=== PATIENT | female | born 1985 | race American Indian/Alaskan Native ===

== ENCOUNTER 2020-05-26 15:23 | Emergency (ER) | payer MEDICAID, OTHER ==
[2020-05-26 18:34] LABS: Basophils % (Auto) 0.3 % (0.0-1.8); Eosinophils % (Auto) 0.3 % (0.0-4.3); Hemoglobin 12.5 gm/dl (10.1-14.3); Lymphocytes # (Auto) 0.9 K/mm3 (1.2-5.4); Mean Corpuscular HGB Conc 35 % (30-34); Mean Corpuscular Volume 84 fl (79-97); Monocytes # (Auto) 0.4 K/mm3 (0.0-0.8); Monocytes % (Auto) 8.7 % (0.0-7.3); Platelet Count 321 K/mm3 (140-440); Red Blood Count 4.28 M/mm3 (3.65-5.03); Red Cell Distribution Width 14.3 % (13.2-15.2)
--- NOTE | 2020-05-26 18:54 | XRay Report ---
CHEST 2 VIEWS INDICATION / CLINICAL INFORMATION: shortness of breath, +covid. COMPARISON: None available. FINDINGS: SUPPORT DEVICES: None. HEART / MEDIASTINUM: No significant abnormality. LUNGS / PLEURA: Mild patchy bilateral airspace disease No pneumothorax. ADDITIONAL FINDINGS: No significant additional findings. IMPRESSION: Mild patchy bilateral airspace disease Signer Name: Adriano Huff MD FACR Signed: 05/26/2020 6:50 PM Workstation Name: [id number]
[2020-05-26 18:55] LABS: Alanine Aminotransferase 13 units/L (7-56); Blood Urea Nitrogen 7 mg/dL (7-17); Calcium 9.1 mg/dL (8.4-10.2); Hemolysis Index 8
[2020-05-26 19:02] LABS: BUN/Creatinine Ratio 12
[2020-05-26] MEDS ORDERED: AZITHROMYCIN 250 MG TAB PO ONE (20:36)
--- NOTE | 2020-05-26 20:41 | Emergency Department Report ---
HPI - General Chief Complaint: Dyspnea/Respdistress Time Seen by Provider: 05/26/20 20:25 - HPI HPI: This is a 34-year-old female who presents to the emergency department with a complaint of shortness of breath that started today. Patient was having a few days of head congestion, loss of smell and taste, and went to be seen in urgent care yesterday where she tested positive for Covid. She is currently 14 weeks . With this she is G4, P1 with 2 previous miscarriages. She follows with [facility]. She also has a past medical history of insulin-dependent diabetes and sees a perinatologist. She denies any fever, chest pain, lower e xtremity swelling, nausea, vomiting. She has not taken anything for symptoms prior to presentation today. No recent travel. ED Past Medical Hx - Past Medical History Hx Diabetes: Yes - Surgical History Additional Surgical History: D&C - Social History Smoking Status: Never Smoker Substance Use Type: None - Medications Home Medications: Home Medications Medication Instructions Recorded Confirmed Last Taken Type Amoxicillin/K Clav Tab [Augmentin 1 tab PO BID #20 tablet 09/18/14 Unknown Rx 875MG] Fluticasone Propionate [Flonase] 2 sprays NS QDAY #1 bottle 09/18/14 Unknown Rx Ibuprofen [Motrin] 600 mg PO Q8H PRN #40 tablet 09/18/14 Unknown Rx Loratadine (Nf) [Claritin] 10 mg PO DAILY #30 tablet 09/18/14 Unknown Rx predniSONE [Deltasone] 40 mg PO QDAY #10 tab 09/18/14 Unknown Rx cephALEXin [Keflex] 500 mg PO QID #28 capsule 02/05/15 Unknown Rx Albuterol Mdi (or & Nicu Only) 2 puff IH QID PRN #8.5 gram 05/27/20 Unknown Rx [ProAir HFA Inhaler] Azithromycin [Zithromax TAB] 250 mg PO QDAY #4 tablet 05/27/20 Unknown Rx ED Review of Systems ROS: Stated complaint: SHORTNESS OF BREATH/COUGH Other details as noted in HPI Comment: All other systems reviewed and negative Constitutional: chills, other (fatigue). denies: fever Eyes: denies: eye pain, vision change ENT: denies: ear pain Respiratory: cough, shortness of breath. denies: no symptoms reported Cardiovascular: denies: chest pain, edema Gastrointestinal: denies: abdominal pain, vomiting Genitourinary: denies: dysuria, discharge Musculoskeletal: back pain, myalgia. denies: arthralgia Skin: denies: rash, lesions Neurological: denies: headache, numbness Physical Exam - Physical Exam Vital Signs: Vital Signs 05/26/20 15:35 Temperature 98.6 F Pulse Rate 124 H Respiratory 24 Rate Blood Pressure 142/83 O2 Sat by Pulse 98 Oximetry Physical Exam: GENERAL: The patient is well-developed well-nourished. HENT: Normocephalic. Atraumatic. Patient has moist mucous membranes. EYES: Extraocular motions are intact. NECK: Supple. Trachea is midline. CHEST/LUNGS: Clear to auscultation. Mild tachypnea but no accessory muscle use. No cough heard during examination. There is no respiratory distress noted. HEART/CARDIOVASCULAR: Regular. There is mild tachycardia. There is no murmur. ABDOMEN: Abdomen is soft, nontender. Patient has normal bowel sounds. Obese habitus. SKIN: Skin is warm and dry. NEURO: The patient is awake, alert, and oriented. The patient is cooperative. The patient has no focal neurologic deficits. Normal speech. MUSCULOSKELETAL: There is no tenderness or deformity. There is no limitation range of motion. ED Course Vital Signs 05/26/20 15:35 Temperature 98.6 F Pulse Rate 124 H Respiratory 24 Rate Blood Pressure 142/83 O2 Sat by Pulse 98 Oximetry ED Medical Decision Making - Lab Data Result diagrams: 05/26/20 18:20 05/26/20 18:20 - Radiology Data Radiology results: report reviewed CHEST 2 VIEWS INDICATION / CLINICAL INFORMATION: shortness of breath, +covid. COMPARISON: None available. FINDINGS: SUPPORT DEVICES: None. HEART / MEDIASTINUM: No significant abnormality. LUNGS / PLEURA: Mild patchy bilateral airspace disease No pneumothorax. ADDITIONAL FINDINGS: No significant additional findings. IMPRESSION: Mild patchy bilateral airspace disease CTA of the chest with 3D Reconstruction Indication: 91 ,SOB, elevated dimer Technique: TECHNIQUE: Axial CT images were obtained through the chest after injection of 80 cc of Omnipaque 350 IV contrast. 3 plane MIP reconstructions were produced. All CT scans at this location are performed using CT dose reduction for ALARA by means of automated exposure control. COMPARISON: None Automatic exposure control was utilized in an attempt to reduce radiation dose. Findings: Pulmonary arteries: The main pulmonary artery and right and left pulmonary artery branches fill satisfactorily with contrast. No pulmonary embolus is seen. Lungs: There are patchy peripheral groundglass opacities throughout the lungs. Mediastinum: Heart size is normal. No adenopathy is seen. Aorta: Normal in diameter. No dissection seen within limits of this exam. Impression: No pulmonary embolus is seen There are patchy peripheral groundglass opacities in the lungs characteristic of atypical pneumonia including viral pneumonia. - Medical Decision Making This patient presents to the emergency department with a 1 day history of shortness of breath that developed after the patient was found to be positive for COVID-19 yesterday at an urgent care. The patient is currently 14 weeks . She has no complaints of any abdominal pain, pelvic pain, vaginal bleeding, nausea or vomiting. On examination the patient has some mild tachypnea but does not appear in any respiratory distress. There is also some mild tachycardia. EKG did not have any morphology consistent with ST elevation [place] or dysrhythmia. Chest x-ray showed bilateral patchy infiltrates that appear consistent with her COVID-19 diagnosis. The patient had some blood work through triage that was mostly unremarkable including CBC and CMP. The patient's symptoms are most likely consistent with COVID-19. The patient and I had a conversation regarding evaluating her for an ruling out a pulmonary embolism. While the patient did have the COVID-19 diagnosis, she did present with acute shortness of breath and tachycardia. Both and COVID-19 have been shown to increase risks for thromboembolic disease. The patient und erstood the protocol for the work-up and understood that it may require CT angiography imaging of the chest. All of the risks versus rewards were discussed with the patient, all questions answered, and the patient agreed that we should proceed with this evaluation. Her D-dimer level came back elevated and therefore a CT angiography of the chest was performed. There were no signs of any pulmonary embolism and it once again showed bilateral pneumonia. Patient was given a dose of azithromycin. The patient had a 2-minute walking/exertional test around the emergency department. Her pulse ox stayed at 95% or above. She did have some transient increase in her tachycardia but that came back down as soon as she sat down on the gurney and rested. The patient will be discharged home to quarantine/self isolate. She has been instructed to follow-up with, or at least make contact with, her primary care physician and [facility] and perinatologist. She has been given a prescription for azithromycin and albuterol inhaler. The patient has been instructed to return to the emergency department im mediately with any worsening of her shortness of breath, development of chest pain, worsening of her symptoms, or with any acute distress. The patient was placed in patient isolation and droplet precautions immediately upon arrival to the main emergency department. I wore full PPE gear including a surgical hat, goggles, N95 mask, surgical mask, gown, and double gloves for every encounter. Critical Care Time: No Critical care attestation.: If time is entered above; I have spent that time in minutes in the direct care of this critically ill patient, excluding procedure time. ED Disposition Clinical Impression: COVID-19 Qualifiers: Weeks of gestation: 14 weeks Qualified Code(s): Z3A.14 - 14 weeks gestation of Pneumonia Qualifiers: Pneumonia type: due to unspecified organism Laterality: bilateral Lung location: unspecified part of lung Qualified Code(s): J18.9 - Pneumonia, unspecified organism Disposition: TO HOME OR SELFCARE Is pt being admited?: No Condition: Stable Instructions: COVID-19, (ED) Additional Instructions: Please follow-up with a primary care physician in the next few days. Please follow-up with your [facility]. With your positive COVID-19 test, please isolate/quarantine yourself. Stay away from anybody who is immunocompromised, elderly, or chronically ill/debilitated. Return to the emergency department immediately with any worsening of your symptoms, especially increased shortness of breath, development of chest pain, high intractable fever, or with any acute distress. Prescriptions: Albuterol Mdi (or & Nicu Only) [ProAir HFA Inhaler] 2 puff IH QID PRN #8.5 gram PRN Reason: Shortness Of Breath Azithromycin [Zithromax TAB] 250 mg PO QDAY #4 tablet Referrals: [facility] [Provider Group] - 2-3 Days PRIMARY CARE, [Primary Care Provider] - 2-3 Days Time of Disposition: 00:29
--- NOTE | 2020-05-26 23:56 | Cat Scan Report ---
CTA of the chest with 3D Reconstruction Indication: 91 ,SOB, elevated dimer Technique: TECHNIQUE: Axial CT images were obtained through the chest after injection of 80 cc of Omnipaque 350 IV contrast. 3 plane MIP reconstructions were produced. All CT scans at this location are performed u sing CT dose reduction for ALARA by means of automated exposure control. COMPARISON: None Automatic exposure control was utilized in an attempt to reduce radiation dose. Findings: Pulmonary arteries: The main pulmonary artery and right and left pulmonary artery branches fill satis factorily with contrast. No pulmonary embolus is seen. Lungs: There are patchy peripheral groundglass opacities throughout the lungs. Mediastinum: Heart size is normal. No adenopathy is seen. Aorta: Normal in diameter. No dissection seen within limits of this exam. Impression: No pulmonary embolus is seen There are patchy peripheral groundglass opacities in the lungs characteristic of atypical pneumonia i ncluding viral pneumonia. Signer Name: Cristian Beaulieu MD Signed: 05/26/2020 11:51 PM Workstation Name: [id number]
[2020-05-27 00:56] VITALS: BP 116/76
== END 2020-05-27 00:56 | disposition home or self-care (01) ==
LOC: ED 15:23
DX: O98.512 Other viral diseases complicating pregnancy, second trimester (principal); O99.512 Diseases of the respiratory system complicating pregnancy, second trimester; J12.89 Other viral pneumonia; U07.1 COVID-19; O24.912 Unspecified diabetes mellitus in pregnancy, second trimester; Z88.1 Allergy status to other antibiotic agents; Z91.040 Latex allergy status; Z91.09 Other allergy status, other than to drugs and biological substances; Z79.899 Other long term (current) drug therapy; Z3A.14 14 weeks gestation of pregnancy
CPT/HCPCS: 36415; 71046; 71275; 80053; 85025; 85379; 99285; Q9967

== ENCOUNTER 2020-11-05 10:27 | Outpatient (CLI) | payer OTHER ==
[2020-11-05 11:24] VITALS: BP 129/58
[2020-11-05] MEDS ORDERED: LACTATED RINGERS 1,000 ML IV SCH (11:30)
--- NOTE | 2020-11-05 12:27 | Ultrasound Report ---
LIMITED OBSTETRICAL ULTRASOUND WITH BIOPHYSICAL PROFILE HISTORY: Tachycardia. FINDINGS: A single viable intrauterine in the cephalic position has heart tones of 13 2 bpm. Amniotic fluid index is normal at 13 cm. Biophysical profile is normal at 8/8. IMPRESSION: 1. Normal biophysical profile and amniotic fluid index. 2. heart tones 132 bpm at the time of exam. Signer Name: Bashir Elmore MD Signed: 11/05/2020 12:23 PM Workstation Name: [email or web address] [id number]
[2020-11-05 13:24] LABS: Bacteria,Urine 1+ /HPF (Negative); Bilirubin,Urine NEG (Negative); Blood,Urine NEG (Negative); Color,Urine Yellow (Yellow); Mucus,Urine 2+ /HPF; Protein,Urine <15 mg/dL mg/dL (Negative)
== END 2020-11-05 13:06 | disposition home or self-care (01) ==
LOC: TRG 10:27 → APU 10:28 → TRG 13:06
PROVIDERS: ATTEND Obstetrics & Gynecology
DX: Z34.93 Encounter for supervision of normal pregnancy, unspecified, third trimester (principal); Z3A.37 37 weeks gestation of pregnancy
CPT/HCPCS: 36415; 59025; 76815; 76819; 81001; 83036

== ENCOUNTER 2020-11-17 20:59 | Inpatient (IN) | payer OTHER ==
[2020-11-17] MEDS ORDERED: ONDANSETRON 4 MG/2 ML INJ IV PRN (23:10)
[2020-11-17] MEDS ORDERED: ePHEDrine SULFATE 50 MG/1 ML INJ IV PRN (23:10)
[2020-11-17] MEDS ORDERED: ACETAMINOPHEN 325 MG TAB PO PRN (23:10)
[2020-11-17] MEDS ORDERED: DINOPROSTONE 10 MG VAG SUPP VG ONE (23:10)
[2020-11-17] MEDS ORDERED: MINERAL OIL 30 ML ORAL LIQD PO PRN (23:10)
[2020-11-17] MEDS ORDERED: TERBUTALINE 1 MG/1 ML INJ SUB-Q PRN (23:10)
[2020-11-17] MEDS ORDERED: LACTATED RINGERS 1,000 ML IV SCH (23:15)
--- NOTE | 2020-11-17 23:31 | Ultrasound Report ---
US OB limited INDICATION / CLINICAL INFORMATION: PRESENTATION. COMPARISON: 11/05/2020 FINDINGS: lie is cephalic. heart rate is 149. IMPRESSION: 1. lie is cephalic. Signer Name: Aly Colmenares MD Signed: 11/17/2020 11:26 PM Workstation Name: [id number]
[2020-11-18 00:07] LABS: Hematocrit 34.8 % (30.3-42.9); Hemoglobin 11.4 gm/dl (10.1-14.3); Mean Corpuscular HGB Conc 33 % (30-34); Mean Corpuscular Volume 85 fl (79-97); Platelet Count 359 K/mm3 (140-440); Red Cell Distribution Width 15.5 % (13.2-15.2)
--- NOTE | 2020-11-18 05:35 | History and Physical Report ---
History of Present Illness Date of examination: 11/18/20 (IOL DMT2 insulin) Date of admission: 11/17/20 20:59 History of present illness: EDC Confirmation: 11/20/2020 Past History : 4 Term Births: 1 Premature Births: 0 Living Children: 1 Para: 1 Mult. Births: 0 Prev : 0 Aborta: 0 Elect. Ab: 0 Spont. 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 % Sun Exposure: rarely Family History Risk Factors: Family History of [place] in females < 65 years old: no Dietary Counseling: pn yes Past Medical History: Reviewed history and no changes required: Diabetes: Type 2 Past Surgical History: Reviewed history and no changes required: negative Past Medical History Anesthesia Complications: negative Anemia: negative Autoimmune Disorder: negative Bleeding Disorder: negative Blood Transfusions: negative Breast Disease: negative Diabetes: positive, Type 2 Heart Disease: negative Hypertension: negative Hepatitis/Liver Disease: negative Kidney Disease/UTI: negative Neurologic/Epilepsy/Migraines: negative Phlebitis/Varicosities: negative Psychiatric: negative Pulmonary Disease/Asthma: negative Thyroid Disease: negative Hospitalizations: negative Surgery (Non-urogynecology physician): negative Abnormal PAP: negative TRICE Exposure: negative Infertility: negative Uterine Anomaly: negative Uterine Surgery (not C/S): negative Other Gynecologic Problems: negative Family Hx: Sister: Type 1 Infection History Hx of STD: none HIV Risk Eval: low risk Hepatitis B Risk Eval: low risk Personal hx. of genital herpes: no Partner hx. of genital herpes: no Rash, Viral, or Febrile illness since last LMP? no Varicella/Chicken Pox Status: Previous Disease TB Risk: no Genetic History Congenital Heart Defect: Mom: no Dad: no [place] Disease: Mom: no Dad: no Thalassemia Mom: no Dad: no Neural Tube Defect Mom: no Dad: no Down's Syndrome Mom: no Dad: no Cr-Sachs Mom: no Dad: no Sickle Cell Disease/Trait Mom: no Dad: no Hemophilia Mom: no Dad: no Muscular Dystrophy Mom: no Dad: no Cystic Fibrosis Mom: no Dad: no Andreea Chorea Mom: no Dad: no Mental Retardation Mom: no Dad: no Fragile X Mom: no Dad: no Other Genetic/Chromosomal Disorder Mom: no Dad: no Child w/other defect Mom: no Dad: no Enviromental Exposures Xray Exposure: no Medication, drug, or alcohol use since LMP: no Chemical/Other Exposure: no Exposure to Cat Liter: no Hx of Parvovirus (Fifth Disease): no Occupational Exposure to Children: none Active Medications: VITAMINS GUMMIES () Current Allergies (reviewed today): * EYE DROPS (Critical) * LATEX (Critical) Past History - Obstetrical History Expected Date of Delivery: 11/20/20 Actual Gestation: 39 Week(s) 5 Day(s) : 4 Para: 1 Hx # Term Pregnancies: 1 Number of Pregnancies: 0 Spontaneous Abortions: 2 Induced : 0 Number of Living Children: 1 Medications and Allergies Allergies Allergy/AdvReac Type Severity Reaction Status Date / Time gentamicin [Gentamicin] Allergy Severe Unknown Verified 11/05/20 11:16 Latex, Natural Rubber Allergy Unknown Verified 05/26/20 15:32 Home Medications Medication Instructions Recorded Confirmed Last Taken Type Albuterol Mdi (or & Nicu Only) 2 puff IH QID PRN #8.5 gram 05/27/20 11/18/20 Unknown Rx [ProAir HFA Inhaler] Insulin NPH Human Isophane 36 unit SQ BID 11/18/20 11/18/20 11/17/20 08:00 History [Humulin N] Insulin Regular, Human [Humulin R] 25 unit SQ BID 11/18/20 11/18/20 11/17/20 17:00 History Vit-Fe Fumar-FA [ 1 tab PO QDAY 11/18/20 11/18/20 11/17/20 08:00 History Vitamin] Active Meds: Active Medications Acetaminophen (Acetaminophen 325 Mg Tab) 650 mg PO Q4H PRN PRN Reason: Pain, Mild (1-3) Ephedrine Sulfate (Ephedrine Sulfate 50 Mg/1 Ml Inj) 10 mg IV Q2M PRN PRN Reason: Hypotension Lactated Ringer's (Lactated Ringers) 1,000 mls @ 125 mls/hr IV DIRECT SARI Mineral Oil (Mineral Oil 30 Ml Oral Liqd) 30 ml PO QHS PRN PRN Reason: Constipation Ondansetron HCl (Ondansetron 4 Mg/2 Ml Inj) 4 mg IV Q8H PRN PRN Reason: Nausea And Vomiting Terbutaline Sulfate (Terbutaline 1 Mg/1 Ml Inj) 0.25 mg SUB-Q ONCE PRN PRN Reason: Hyperstimulation/Hypertonicity Review of Systems All systems: negative - Vital Signs Vital signs: Vital Signs Pulse Pulse Ox 107 H 98 11/17/20 22:20 11/17/20 22:20 Temp Pulse Resp BP Pulse Ox 98.1 F 87 19 120/57 98 11/18/20 03:10 11/18/20 05:29 11/18/20 03:10 11/18/20 04:58 11/18/20 05:29 - Physical Exam Breasts: Positive: deferred Cardiovascular: Regular rate, Normal S1, Normal S2 Lungs: Positive: Normal air movement Abdomen: Positive: normal appearance, soft, normal bowel sounds. Negative: distention, tenderness Genitourinary (Female): Positive: normal external genitalia Vulva: both: normal Vagina: Positive: normal moisture. Negative: discharge Cervix: Negative: lesion, discharge Uterus: Positive: normal size, normal contour Adnexa: both: normal Anus/Rectum: Positive: normal perianal skin, heme negative. Negative: rectal mass, hemorrhoids Extremities: Deep Tendon Reflex Grade: Normal +2 - Obstetrical FHR: category 1 Uterine Contraction Monitor Mode: External Cervical Dilatation: 2 Cervical Effacement Percentage: 50 station: -3 Uterine Contraction Pattern: Regular Uterine Contraction Intensity: Moderate Results Result Diagrams: 11/17/20 23:25 Abnormal lab results 11/17/20 Range/Units 23:25 RDW 15.5 H (13.2-15.2) % All other labs normal. GBS NEGATIVE HBsAg Screen Negative Negative *1 RPR Non Reactive Non Reactive *2 Rubella Antibodies, IgG 4.08 index Immune >0.99 *3 Non-immune <0.90 Equivocal 0.90 - 0.99 Immune >0.99 ABO Grouping O *4 Rh Factor Positive *5 Please note: Prior records for this patient's ABO / Rh type are not available for additional verification. Antibody Screen Negative Negative *6 WBC 6.5 x10E3/uL 3.4-10.8 *7 RBC 4.39 x10E6/uL 3.77-5.28 *8 Hemoglobin 12.4 g/dL 11.1-15.9 *9 Hematocrit 36.8 % 34.0-46.6 *10 MCV 84 fL 79-97 *11 MCH 28.2 pg 26.6-33.0 *12 MCHC 33.7 g/dL 31.5-35.7 *13 RDW 13.0 % 11.7-15.4 *14 Platelets 424 x10E3/uL 150-450 *15 Neutrophils 70 % Not Estab. *16 Lymphs 22 % Not Estab. *17 Monocytes 6 % Not Estab. *18 Eos 1 % Not Estab. *19 Basos 0 % Not Estab. *20 ! Immature Cells <No Reported Value> *21 Neutrophils (Absolute) 4.6 x10E3/uL 1.4-7.0 *22 Lymphs (Absolute) 1.4 x10E3/uL 0.7-3.1 *23 Monocytes(Absolute) 0.4 x10E3/uL 0.1-0.9 *24 Eos (Absolute) 0.0 x10E3/uL 0.0-0.4 *25 Baso (Absolute) 0.0 x10E3/uL 0.0-0.2 *26 ! Immature Granulocytes 1 % Not Estab. *27 ! Immature Grans (Abs) 0.0 x10E3/uL 0.0-0.1 *28 ! NRBC <No Reported Value> *29 Hematology Comments: <No Reported Value> *30 Tests: (2) HB Solu + Rflx [facility] ([id number]) Hemoglobin (Hgb) Solubility Negative Negative *31 Tests: (3) HIV Ag/Ab with Reflex ([id number]) HIV Screen 4th Generation wRfx Non Reactive Non Reactive *32 Tests: (4) HCV Ab w/Rflx to Verification ([id number]) ! HCV Ab <0.1 s/co ratio 0.0-0.9 *33 Tests: (5) Comment: ([id number]) ! Comment: SPRCS *34 Non reactive HCV antibody screen is consistent with no HCV infection, unless recent infection is suspected or other evidence exists to indicate HCV infection. Tests: (6) Urine Culture, Routine ([id number]) Urine Culture, Routine Final report *35 Tests: (7) Result ([id number]) ! Result 1 MUG *36 Mixed urogenital chana 10,000-25,000 colony forming units per mL Assessment and Plan 34 yo @ 39 w for IOL Pt is an insulin dependent Type 2 diabetic GBS negative BMI 69. All orders in EMR US done on admission vertex. - Patient Problems (1) Insulin dependent type 2 diabetes mellitus, controlled Onset Date: ~11/18/20 Current Visit: Yes Status: Acute Plan to address problem: Insulin order in EMR SSI for coverage when not eating
[2020-11-18] MEDS ORDERED: DEXTROSE 50% IN WATER (25GM) 50 ML SYRINGE IV PRN (06:13)
--- NOTE | 2020-11-18 07:30 | Event Note ---
Date: 11/18/20 (Pt sleep) Went to speak with patient and she was sleep. Will come back to speak with patient regarding plan for this AM. According to RN, pt did well overnight. Currently category 1 tracing with irregular contractions noted.
[2020-11-18] MEDS: INSULIN NPH, HUMAN 100 UNIT/1 ML SUB-Q SCH ×3 (07:48→16:01)
[2020-11-18] MEDS ORDERED: INSULIN REGULAR, HUMAN 100 UNITS/1 ML SUB-Q SCH ×2 (08:00→17:00)
--- NOTE | 2020-11-18 12:33 | Progress Note ---
Assessment and Plan A: 34 y.o. @ 39.5 IOL d/t Type 2 DM, insulin controlled. Cervical exam 2.550/- 3. P: Cervidil removed. Pt has already eaten. Pitocin initiated per protocol. Subjective - Subjective Date of service: 11/18/20 Principal diagnosis: IUP @ 39.5, IOL d/t Type 2 DM insulin controlled Patient reports: contractions (Pt states that she is feeling some contractions. ) Objective - Vital Signs Vital Signs: Vital Signs - 12hr 11/18/20 11/18/20 11/18/20 00:55 01:25 01:55 Temperature Pulse Rate 100 H 84 81 Respiratory Rate Blood Pressure 138/68 135/67 146/79 O2 Sat by Pulse Oximetry 11/18/20 11/18/20 11/18/20 03:10 03:11 03:13 Temperature 98.1 F Pulse Rate 86 82 Respiratory 19 Rate Blood Pressure 138/84 O2 Sat by Pulse 98 Oximetry 11/18/20 11/18/20 11/18/20 03:18 03:23 03:28 Temperature Pulse Rate 81 91 H 78 Respiratory Rate Blood Pressure O2 Sat by Pulse 98 97 98 Oximetry 11/18/20 11/18/20 11/18/20 03:33 03:38 03:43 Temperature Pulse Rate 78 84 81 Respiratory Rate Blood Pressure O2 Sat by Pulse 98 98 98 Oximetry 11/18/20 11/18/20 11/18/20 03:54 03:59 04:04 Temperature Pulse Rate 95 H 85 81 Respiratory Rate Blood Pressure O2 Sat by Pulse 98 98 98 Oximetry 11/18/20 11/18/20 11/18/20 04:09 04:14 04:19 Temperature Pulse Rate 85 78 85 Respiratory Rate Blood Pressure O2 Sat by Pulse 99 98 98 Oximetry 11/18/20 11/18/20 11/18/20 04:24 04:29 04:34 Temperature Pulse Rate 109 H 83 85 Respiratory Rate Blood Pressure O2 Sat by Pulse 97 97 97 Oximetry 11/18/20 11/18/20 11/18/20 04:39 04:44 04:49 Temperature Pulse Rate 98 H 96 H 118 H Respiratory Rate Blood Pressure O2 Sat by Pulse 97 98 98 Oximetry 11/18/20 11/18/20 11/18/20 04:54 04:58 04:59 Temperature Pulse Rate 102 H 96 H 97 H Respiratory Rate Blood Pressure 120/57 O2 Sat by Pulse 98 98 Oximetry 11/18/20 11/18/20 11/18/20 05:04 05:09 05:14 Temperature Pulse Rate 88 121 H 95 H Respiratory Rate Blood Pressure O2 Sat by Pulse 97 98 98 Oximetry 11/18/20 11/18/20 11/18/20 05:19 05:24 05:29 Temperature Pulse Rate 99 H 90 87 Respiratory Rate Blood Pressure O2 Sat by Pulse 97 98 98 Oximetry 11/18/20 11/18/20 11/18/20 05:34 05:39 05:44 Temperature Pulse Rate 84 85 92 H Respiratory Rate Blood Pressure O2 Sat by Pulse 97 97 97 Oximetry 11/18/20 11/18/20 11/18/20 05:49 05:54 05:59 Temperature Pulse Rate 88 91 H 86 Respiratory Rate Blood Pressure O2 Sat by Pulse 97 97 96 Oximetry 11/18/20 11/18/20 11/18/20 06:04 06:09 06:14 Temperature Pulse Rate 107 H 104 H 96 H Respiratory Rate Blood Pressure O2 Sat by Pulse 97 99 97 Oximetry 11/18/20 11/18/20 11/18/20 06:19 06:24 06:29 Temperature Pulse Rate 87 91 H 98 H Respiratory Rate Blood Pressure O2 Sat by Pulse 98 97 98 Oximetry 11/18/20 11/18/20 11/18/20 06:34 06:39 06:58 Temperature Pulse Rate 92 H 115 H 88 Respiratory Rate Blood Pressure O2 Sat by Pulse 98 97 98 Oximetry 11/18/20 11/18/20 11/18/20 07:03 07:08 07:13 Temperature Pulse Rate 92 H 90 99 H Respiratory Rate Blood Pressure 130/83 O2 Sat by Pulse 97 98 98 Oximetry 11/18/20 11/18/20 11/18/20 07:14 07:18 07:23 Temperature 98.4 F Pulse Rate 85 87 Respiratory 18 Rate Blood Pressure O2 Sat by Pulse 98 99 98 Oximetry 11/18/20 11/18/20 11/18/20 07:28 07:33 07:38 Temperature Pulse Rate 84 91 H 105 H Respiratory Rate Blood Pressure O2 Sat by Pulse 98 99 99 Oximetry 11/18/20 11/18/20 11/18/20 07:43 07:48 07:53 Temperature Pulse Rate 95 H 89 86 Respiratory Rate Blood Pressure O2 Sat by Pulse 98 98 97 Oximetry 11/18/20 11/18/20 11/18/20 07:58 08:03 08:08 Temperature Pulse Rate 98 H 88 94 H Respiratory Rate Blood Pressure O2 Sat by Pulse 98 98 98 Oximetry 11/18/20 11/18/20 11/18/20 08:13 08:18 08:23 Temperature Pulse Rate 95 H 83 89 Respiratory Rate Blood Pressure O2 Sat by Pulse 98 99 100 Oximetry 11/18/20 11/18/20 11/18/20 08:26 08:28 08:33 Temperature Pulse Rate 102 H 88 Respiratory Rate Blood Pressure O2 Sat by Pulse 86 97 98 Oximetry 11/18/20 11/18/20 11/18/20 08:38 09:37 09:42 Temperature Pulse Rate 106 H 110 H 91 H Respiratory Rate Blood Pressure O2 Sat by Pulse 98 98 97 Oximetry 11/18/20 11/18/20 11/18/20 09:47 09:52 09:57 Temperature Pulse Rate 89 100 H 89 Respiratory Rate Blood Pressure 139/78 O2 Sat by Pulse 99 98 98 Oximetry 11/18/20 11/18/20 11/18/20 09:59 10:02 10:07 Temperature 98.2 F Pulse Rate 92 H 92 H Respiratory 18 Rate Blood Pressure O2 Sat by Pulse 98 98 Oximetry 11/18/20 11/18/20 11/18/20 10:12 10:17 10:22 Temperature Pulse Rate 98 H 98 H 91 H Respiratory Rate Blood Pressure O2 Sat by Pulse 98 97 98 Oximetry 11/18/20 11/18/20 11/18/20 10:27 10:32 10:37 Temperature Pulse Rate 99 H 106 H 105 H Respiratory Rate Blood Pressure O2 Sat by Pulse 98 97 99 Oximetry 11/18/20 11/18/20 11/18/20 10:42 10:47 10:52 Temperature Pulse Rate 90 107 H 107 H Respiratory Rate Blood Pressure 132/75 O2 Sat by Pulse 99 99 97 Oximetry 11/18/20 11/18/20 11/18/20 10:57 11:02 11:18 Temperature Pulse Rate 107 H 117 H 92 H Respiratory Rate Blood Pressure O2 Sat by Pulse 99 99 97 Oximetry 11/18/20 11/18/20 11/18/20 11:19 11:22 11:23 Temperature 98.2 F Pulse Rate 93 H 102 H Respiratory 20 Rate Blood Pressure 132/60 O2 Sat by Pulse 97 Oximetry 11/18/20 11/18/20 11/18/20 11:28 11:33 11:38 Temperature Pulse Rate 96 H 99 H 82 Respiratory Rate Blood Pressure O2 Sat by Pulse 97 98 98 Oximetry 11/18/20 11/18/20 11/18/20 11:43 11:48 11:53 Temperature Pulse Rate 89 89 98 H Respiratory Rate Blood Pressure 130/83 O2 Sat by Pulse 98 98 98 Oximetry 11/18/20 11:58 Temperature Pulse Rate 103 H Respiratory Rate Blood Pressure O2 Sat by Pulse 98 Oximetry - Exam Cervical Dilatation: 2.5 Cervical Effacement Percentage: 50 station: -3 Uterine Contraction Pattern: Irregular Uterine Tone Measurement Phase: Resting Uterine Contraction Intensity: Mild - Labs Labs: Abnormal Labs 11/17/20 11/18/20 23:25 07:15 RDW 15.5 H POC Glucose 108 H Laboratory Results - last 24 hr 11/17/20 11/17/20 11/17/20 23:25 23:25 23:25 WBC 7.4 RBC 4.10 Hgb 11.4 Hct 34.8 MCV 85 MCH 28 MCHC 33 RDW 15.5 H Plt Count 359 POC Glucose Syphilis IgG Antibody Nonreactive Blood Type O POSITIVE Antibody Screen Negative 11/17/20 11/18/20 11/18/20 23:33 03:02 07:15 WBC RBC Hgb Hct MCV MCH MCHC RDW Plt Count POC Glucose 96 71 108 H Syphilis IgG Antibody Blood Type Antibody Screen
[2020-11-18] MEDS ORDERED: OXYTOCIN DRIP 30 UNITS/500 ML BAG IV SCH (13:00)
[2020-11-18] MEDS ORDERED: INSULIN REGULAR, HUMAN 100 UNITS/1 ML IV ONE (16:39)
[2020-11-18] MEDS ORDERED: DINOPROSTONE 10 MG VAG SUPP VG PRN (18:07)
--- NOTE | 2020-11-18 20:33 | Progress Note ---
Assessment and Plan A:34 y.o. with IUP @ 39.5, IOL d/t Type 2 DM insulin controlled. Cervical exam /3. P: Pt ate dinner. Continue with IOL. Cervidil placed @ 1944. Subjective - Subjective Date of service: 11/18/20 (Cervidil placed 1944) Principal diagnosis: IUP @ 39.5, IOL d/t Type 2 DM insulin controlled Patient reports: contractions (Pt states that she is feeling some contractions. ) Objective - Vital Signs Vital Signs: Vital Signs - 12hr 11/18/20 11/18/20 11/18/20 08:33 08:38 09:37 Temperature Pulse Rate 88 106 H 110 H Respiratory Rate Blood Pressure Blood Pressure [Left] O2 Sat by Pulse 98 98 98 Oximetry 11/18/20 11/18/20 11/18/20 09:42 09:47 09:52 Temperature Pulse Rate 91 H 89 100 H Respiratory Rate Blood Pressure 139/78 Blood Pressure [Left] O2 Sat by Pulse 97 99 98 Oximetry 11/18/20 11/18/20 11/18/20 09:57 09:59 10:02 Temperature 98.2 F Pulse Rate 89 92 H Respiratory 18 Rate Blood Pressure Blood Pressure [Left] O2 Sat by Pulse 98 98 Oximetry 11/18/20 11/18/20 11/18/20 10:07 10:12 10:17 Temperature Pulse Rate 92 H 98 H 98 H Respiratory Rate Blood Pressure Blood Pressure [Left] O2 Sat by Pulse 98 98 97 Oximetry 11/18/20 11/18/20 11/18/20 10:22 10:27 10:32 Temperature Pulse Rate 91 H 99 H 106 H Respiratory Rate Blood Pressure Blood Pressure [Left] O2 Sat by Pulse 98 98 97 Oximetry 11/18/20 11/18/20 11/18/20 10:37 10:42 10:47 Temperature Pulse Rate 105 H 90 107 H Respiratory Rate Blood Pressure Blood Pressure [Left] O2 Sat by Pulse 99 99 99 Oximetry 11/18/20 11/18/20 11/18/20 10:52 10:57 11:02 Temperature Pulse Rate 107 H 107 H 117 H Respiratory Rate Blood Pressure 132/75 Blood Pressure [Left] O2 Sat by Pulse 97 99 99 Oximetry 11/18/20 11/18/20 11/18/20 11:18 11:19 11:22 Temperature 98.2 F Pulse Rate 92 H 93 H Respiratory 20 Rate Blood Pressure 132/60 Blood Pressure [Left] O2 Sat by Pulse 97 Oximetry 11/18/20 11/18/20 11/18/20 11:23 11:28 11:33 Temperature Pulse Rate 102 H 96 H 99 H Respiratory Rate Blood Pressure Blood Pressure [Left] O2 Sat by Pulse 97 97 98 Oximetry 11/18/20 11/18/20 11/18/20 11:38 11:43 11:48 Temperature Pulse Rate 82 89 89 Respiratory Rate Blood Pressure Blood Pressure [Left] O2 Sat by Pulse 98 98 98 Oximetry 11/18/20 11/18/20 11/18/20 11:53 11:58 12:38 Temperature Pulse Rate 98 H 103 H 112 H Respiratory Rate Blood Pressure 130/83 Blood Pressure [Left] O2 Sat by Pulse 98 98 98 Oximetry 11/18/20 11/18/20 11/18/20 12:43 12:48 12:52 Temperature Pulse Rate 99 H 97 H 112 H Respiratory Rate Blood Pressure 133/81 Blood Pressure [Left] O2 Sat by Pulse 97 98 Oximetry 11/18/20 11/18/20 11/18/20 12:53 12:58 13:03 Temperature Pulse Rate 98 H 108 H 102 H Respiratory Rate Blood Pressure Blood Pressure [Left] O2 Sat by Pulse 97 97 98 Oximetry 11/18/20 11/18/20 11/18/20 13:08 13:13 13:18 Temperature Pulse Rate 120 H 93 H 100 H Respiratory Rate Blood Pressure Blood Pressure [Left] O2 Sat by Pulse 97 97 97 Oximetry 11/18/20 11/18/20 11/18/20 13:23 13:28 13:33 Temperature Pulse Rate 88 87 97 H Respiratory Rate Blood Pressure Blood Pressure [Left] O2 Sat by Pulse 98 98 97 Oximetry 11/18/20 11/18/20 11/18/20 13:38 13:43 13:49 Temperature Pulse Rate 95 H 115 H 96 H Respiratory Rate Blood Pressure Blood Pressure [Left] O2 Sat by Pulse 97 98 96 Oximetry 11/18/20 11/18/20 11/18/20 13:52 13:53 13:58 Temperature Pulse Rate 105 H 88 94 H Respiratory Rate Blood Pressure 143/72 Blood Pressure [Left] O2 Sat by Pulse 97 97 Oximetry 04/07/2911/18/20 11/18/20 14:03 14:08 14:14 Temperature Pulse Rate 103 H 94 H 91 H Respiratory Rate Blood Pressure Blood Pressure [Left] O2 Sat by Pulse 97 97 97 Oximetry 11/18/20 11/18/20 11/18/20 14:19 14:24 14:28 Temperature Pulse Rate 87 129 H 88 Respiratory Rate Blood Pressure Blood Pressure [Left] O2 Sat by Pulse 98 97 97 Oximetry 11/18/20 11/18/20 11/18/20 14:33 14:38 14:43 Temperature Pulse Rate 84 95 H 96 H Respiratory Rate Blood Pressure Blood Pressure [Left] O2 Sat by Pulse 97 97 97 Oximetry 11/18/20 11/18/20 11/18/20 14:48 14:52 14:53 Temperature Pulse Rate 93 H 85 82 Respiratory Rate Blood Pressure 109/53 Blood Pressure [Left] O2 Sat by Pulse 98 99 Oximetry 11/18/20 11/18/20 11/18/20 14:58 15:02 15:03 Temperature Pulse Rate 81 96 H 91 H Respiratory Rate Blood Pressure Blood Pressure [Left] O2 Sat by Pulse 99 93 97 Oximetry 11/18/20 11/18/20 11/18/20 15:08 15:13 15:19 Temperature Pulse Rate 89 106 H 87 Respiratory Rate Blood Pressure Blood Pressure [Left] O2 Sat by Pulse 98 98 99 Oximetry 11/18/20 11/18/20 11/18/20 15:23 15:29 15:41 Temperature 97.7 F Pulse Rate 98 H 98 H 101 H Respiratory 20 Rate Blood Pressure Blood Pressure [Left] O2 Sat by Pulse 99 99 98 Oximetry 11/18/20 11/18/20 11/18/20 15:46 15:52 15:56 Temperature Pulse Rate 100 H 92 H 86 Respiratory Rate Blood Pressure Blood Pressure [Left] O2 Sat by Pulse 98 99 98 Oximetry 11/18/20 11/18/20 11/18/20 15:57 16:02 16:07 Temperature Pulse Rate 85 83 90 Respiratory Rate Blood Pressure 129/75 Blood Pressure [Left] O2 Sat by Pulse 98 99 Oximetry 11/18/20 11/18/20 11/18/20 16:11 16:17 16:22 Temperature Pulse Rate 79 80 85 Respiratory Rate Blood Pressure Blood Pressure [Left] O2 Sat by Pulse 99 98 99 Oximetry 11/18/20 11/18/20 11/18/20 16:26 16:27 16:32 Temperature Pulse Rate 79 80 85 Respiratory Rate Blood Pressure 140/83 Blood Pressure [Left] O2 Sat by Pulse 98 99 Oximetry 11/18/20 11/18/20 11/18/20 16:36 16:41 16:47 Temperature Pulse Rate 76 109 H 98 H Respiratory Rate Blood Pressure Blood Pressure [Left] O2 Sat by Pulse 99 95 98 Oximetry 11/18/20 11/18/20 11/18/20 17:10 17:16 17:21 Temperature Pulse Rate 103 H 77 82 Respiratory Rate Blood Pressure Blood Pressure [Left] O2 Sat by Pulse 97 98 99 Oximetry 11/18/20 11/18/20 11/18/20 17:26 17:27 17:31 Temperature Pulse Rate 82 84 101 H Respiratory Rate Blood Pressure 133/77 Blood Pressure [Left] O2 Sat by Pulse 98 97 Oximetry 11/18/20 11/18/20 11/18/20 17:35 17:40 17:45 Temperature Pulse Rate 96 H 98 H 97 H Respiratory Rate Blood Pressure Blood Pressure [Left] O2 Sat by Pulse 100 98 97 Oximetry 11/18/20 11/18/20 11/18/20 17:50 17:55 17:57 Temperature Pulse Rate 89 90 88 Respiratory Rate Blood Pressure 130/71 Blood Pressure [Left] O2 Sat by Pulse 99 97 Oximetry 11/18/20 11/18/20 11/18/20 18:00 18:05 18:10 Temperature Pulse Rate 104 H 99 H 93 H Respiratory Rate Blood Pressure Blood Pressure [Left] O2 Sat by Pulse 98 99 98 Oximetry 11/18/20 11/18/20 11/18/20 18:15 18:20 18:34 Temperature Pulse Rate 90 85 96 H Respiratory Rate Blood Pressure Blood Pressure [Left] O2 Sat by Pulse 98 98 99 Oximetry 11/18/20 11/18/20 11/18/20 18:39 18:44 18:49 Temperature Pulse Rate 81 81 95 H Respiratory Rate Blood Pressure Blood Pressure [Left] O2 Sat by Pulse 97 98 97 Oximetry 11/18/20 11/18/20 11/18/20 18:54 18:59 19:04 Temperature Pulse Rate 84 80 75 Respiratory Rate Blood Pressure Blood Pressure [Left] O2 Sat by Pulse 98 97 98 Oximetry 11/18/20 11/18/20 11/18/20 19:09 19:13 19:14 Temperature 98.3 F Pulse Rate 82 87 93 H Respiratory 12 Rate Blood Pressure 131/81 Blood Pressure 131/81 [Left] O2 Sat by Pulse 98 99 Oximetry 11/18/20 11/18/20 11/18/20 19:19 19:24 19:29 Temperature Pulse Rate 88 92 H 86 Respiratory Rate Blood Pressure Blood Pressure [Left] O2 Sat by Pulse 99 99 99 Oximetry 11/18/20 11/18/20 11/18/20 19:38 19:43 19:48 Temperature Pulse Rate 94 H 111 H 87 Respiratory Rate Blood Pressure Blood Pressure [Left] O2 Sat by Pulse 100 100 98 Oximetry 11/18/20 11/18/20 11/18/20 19:53 19:58 20:03 Temperature Pulse Rate 79 81 92 H Respiratory Rate Blood Pressure Blood Pressure [Left] O2 Sat by Pulse 98 99 99 Oximetry 11/18/20 11/18/20 11/18/20 20:08 20:13 20:18 Temperature Pulse Rate 80 79 78 Respiratory Rate Blood Pressure Blood Pressure [Left] O2 Sat by Pulse 98 99 99 Oximetry 11/18/20 20:23 Temperature Pulse Rate 91 H Respiratory Rate Blood Pressure Blood Pressure [Left] O2 Sat by Pulse 98 Oximetry - Exam Narrative Exam: Reviewed plan with patient and all questions answered. Pitocin was turned off and she had dinner. Cervical exam 250/-3. Cervidil placed at 1945. Glucose ranges have been WNL. Cardiovascular: Regular rate Lungs: Normal air movement Abdomen: Present: normal appearance, soft FHR: category 1 Uterine Contraction Monitor Mode: External Cervical Dilatation: 2 (Cervidil placed @ 1945) Cervical Effacement Percentage: 50 station: -3 Uterine Contraction Pattern: Irregular Uterine Tone Measurement Phase: Resting Uterine Contraction Intensity: Mild - Labs Labs: Abnormal Labs 11/17/20 11/18/20 11/18/20 23:25 07:15 11:20 RDW 15.5 H POC Glucose 108 H 124 H Laboratory Results - last 24 hr 11/17/20 11/17/20 11/17/20 23:25 23:25 23:25 WBC 7.4 RBC 4.10 Hgb 11.4 Hct 34.8 MCV 85 MCH 28 MCHC 33 RDW 15.5 H Plt Count 359 POC Glucose Syphilis IgG Antibody Nonreactive Coronavirus (PCR) Blood Type O POSITIVE Antibody Screen Negative 11/17/20 11/18/20 11/18/20 23:33 03:02 07:15 WBC RBC Hgb Hct MCV MCH MCHC RDW Plt Count POC Glucose 96 71 108 H Syphilis IgG Antibody Coronavirus (PCR) Blood Type Antibody Screen 11/18/20 11/18/20 09:11 11:20 WBC RBC Hgb Hct MCV MCH MCHC RDW Plt Count POC Glucose 124 H Syphilis IgG Antibody Coronavirus (PCR) Negative Blood Type Antibody Screen
[2020-11-18] MEDS ORDERED: INSULIN NPH, HUMAN 100 UNIT/1 ML SUB-Q SCH (22:00)
--- NOTE | 2020-11-19 07:40 | Progress Note ---
Assessment and Plan Cervidil removed without difficulty. Discussed plan of care: AM care, breakfast and starting pitocin. Advised SVE will need to be done if pt desires pain medication or epidural, or for any changes in status. Pt agrees. All questions addressed. - Patient Problems (1) 39 weeks gestation of Current Visit: Yes Status: Acute (2) BMI 60.0-69.9, adult Current Visit: Yes Status: Acute Plan to address problem: efm/toco monitoring difficult d/t obesity. Will placed ISE/IUPC when laboring and appropriate (3) Insulin dependent type 2 diabetes mellitus, controlled Onset Date: ~11/18/20 Current Visit: Yes Status: Acute Plan to address problem: Accuchecks ac/hs until in active labor, then q2h. Sliding scale insulin coverage Subjective - Subjective Date of service: 11/19/20 Principal diagnosis: IUP @ 39.6, IOL d/t Type 2 DM insulin controlled Patient reports: movement normal, contractions (Pt states that she is feeling some contractions. ), no loss of fluid, no vaginal bleeding Objective - Vital Signs Vital Signs: Vital Signs - 12hr 11/18/20 11/18/20 11/18/20 19:38 19:43 19:48 Temperature Pulse Rate 94 H 111 H 87 Respiratory Rate Blood Pressure Blood Pressure [Left] O2 Sat by Pulse 100 100 98 Oximetry 11/18/20 11/18/20 11/18/20 19:53 19:58 20:03 Temperature Pulse Rate 79 81 92 H Respiratory Rate Blood Pressure Blood Pressure [Left] O2 Sat by Pulse 98 99 99 Oximetry 11/18/20 11/18/20 11/18/20 20:08 20:13 20:18 Temperature Pulse Rate 80 79 78 Respiratory Rate Blood Pressure Blood Pressure [Left] O2 Sat by Pulse 98 99 99 Oximetry 11/18/20 11/18/20 11/18/20 20:23 20:28 20:33 Temperature Pulse Rate 91 H 81 78 Respiratory Rate Blood Pressure Blood Pressure [Left] O2 Sat by Pulse 98 98 99 Oximetry 11/18/20 11/18/20 11/18/20 20:38 20:43 20:48 Temperature Pulse Rate 78 76 77 Respiratory Rate Blood Pressure Blood Pressure [Left] O2 Sat by Pulse 98 99 98 Oximetry 11/18/20 11/18/20 11/18/20 20:53 20:58 21:03 Temperature Pulse Rate 78 71 78 Respiratory Rate Blood Pressure Blood Pressure [Left] O2 Sat by Pulse 98 97 99 Oximetry 11/18/20 11/18/20 11/18/20 21:08 21:13 21:18 Temperature Pulse Rate 79 88 79 Respiratory Rate Blood Pressure Blood Pressure [Left] O2 Sat by Pulse 98 98 98 Oximetry 11/18/20 11/18/20 11/18/20 21:23 21:28 21:33 Temperature Pulse Rate 83 78 86 Respiratory Rate Blood Pressure Blood Pressure [Left] O2 Sat by Pulse 100 98 98 Oximetry 11/18/20 11/18/20 11/18/20 21:38 21:43 21:48 Temperature Pulse Rate 79 89 86 Respiratory Rate Blood Pressure Blood Pressure [Left] O2 Sat by Pulse 99 98 99 Oximetry 11/18/20 11/18/20 11/18/20 22:08 22:14 22:19 Temperature Pulse Rate 97 H 101 H 84 Respiratory Rate Blood Pressure Blood Pressure [Left] O2 Sat by Pulse 98 99 98 Oximetry 11/18/20 11/18/20 11/18/20 22:24 22:29 22:34 Temperature Pulse Rate 75 77 77 Respiratory Rate Blood Pressure Blood Pressure [Left] O2 Sat by Pulse 96 98 98 Oximetry 11/18/20 11/18/20 11/18/20 22:39 22:44 22:59 Temperature Pulse Rate 80 90 99 H Respiratory Rate Blood Pressure Blood Pressure [Left] O2 Sat by Pulse 97 97 98 Oximetry 11/18/20 11/18/20 11/18/20 23:04 23:09 23:14 Temperature Pulse Rate 81 80 82 Respiratory Rate Blood Pressure Blood Pressure [Left] O2 Sat by Pulse 97 97 97 Oximetry 11/18/20 11/18/20 11/18/20 23:19 23:24 23:29 Temperature Pulse Rate 84 75 79 Respiratory Rate Blood Pressure Blood Pressure [Left] O2 Sat by Pulse 97 98 99 Oximetry 11/18/20 11/18/20 11/18/20 23:34 23:39 23:44 Temperature Pulse Rate 84 86 105 H Respiratory Rate Blood Pressure Blood Pressure [Left] O2 Sat by Pulse 100 98 99 Oximetry 11/18/20 11/18/20 11/18/20 23:49 23:54 23:59 Temperature Pulse Rate 89 91 H 89 Respiratory Rate Blood Pressure Blood Pressure [Left] O2 Sat by Pulse 99 99 99 Oximetry 11/19/20 11/19/20 11/19/20 00:04 00:08 00:09 Temperature Pulse Rate 99 H 83 83 Respiratory Rate Blood Pressure Blood Pressure [Left] O2 Sat by Pulse 99 59 L 71 L Oximetry 11/19/20 11/19/20 11/19/20 00:14 00:19 00:24 Temperature Pulse Rate 87 94 H 93 H Respiratory Rate Blood Pressure Blood Pressure [Left] O2 Sat by Pulse 97 98 98 Oximetry 11/19/20 11/19/20 11/19/20 00:29 00:34 00:51 Temperature Pulse Rate 108 H 93 H 89 Respiratory Rate Blood Pressure Blood Pressure [Left] O2 Sat by Pulse 100 99 98 Oximetry 11/19/20 11/19/20 11/19/20 00:56 01:01 01:06 Temperature Pulse Rate 86 98 H 99 H Respiratory Rate Blood Pressure Blood Pressure [Left] O2 Sat by Pulse 99 100 99 Oximetry 11/19/20 11/19/20 11/19/20 01:11 01:16 01:21 Temperature Pulse Rate 89 112 H 109 H Respiratory Rate Blood Pressure Blood Pressure [Left] O2 Sat by Pulse 99 98 98 Oximetry 11/19/20 11/19/20 11/19/20 01:26 01:31 01:36 Temperature Pulse Rate 107 H 94 H 89 Respiratory Rate Blood Pressure Blood Pressure [Left] O2 Sat by Pulse 98 98 98 Oximetry 11/19/20 11/19/20 11/19/20 01:41 01:46 01:51 Temperature Pulse Rate 94 H 90 98 H Respiratory Rate Blood Pressure Blood Pressure [Left] O2 Sat by Pulse 98 99 98 Oximetry 11/19/20 11/19/20 11/19/20 01:56 02:01 02:06 Temperature Pulse Rate 96 H 98 H 92 H Respiratory Rate Blood Pressure Blood Pressure [Left] O2 Sat by Pulse 100 100 100 Oximetry 11/19/20 11/19/20 11/19/20 02:11 02:16 02:19 Temperature Pulse Rate 92 H 97 H 96 H Respiratory Rate Blood Pressure Blood Pressure [Left] O2 Sat by Pulse 100 100 90 Oximetry 11/19/20 11/19/20 11/19/20 02:21 02:25 02:26 Temperature Pulse Rate 97 H 100 H 93 H Respiratory Rate Blood Pressure Blood Pressure [Left] O2 Sat by Pulse 100 94 95 Oximetry 11/19/20 11/19/20 11/19/20 02:31 02:36 02:54 Temperature Pulse Rate 97 H 90 109 H Respiratory Rate Blood Pressure Blood Pressure [Left] O2 Sat by Pulse 91 100 98 Oximetry 11/19/20 11/19/20 11/19/20 02:59 03:04 03:09 Temperature Pulse Rate 86 98 H 85 Respiratory Rate Blood Pressure Blood Pressure [Left] O2 Sat by Pulse 98 98 98 Oximetry 11/19/20 11/19/20 11/19/20 03:14 03:19 03:24 Temperature Pulse Rate 91 H 90 90 Respiratory Rate Blood Pressure Blood Pressure [Left] O2 Sat by Pulse 99 98 97 Oximetry 11/19/20 11/19/20 11/19/20 03:29 03:34 03:39 Temperature Pulse Rate 87 100 H 99 H Respiratory Rate Blood Pressure Blood Pressure [Left] O2 Sat by Pulse 96 97 97 Oximetry 11/19/20 11/19/20 11/19/20 03:44 03:49 03:54 Temperature Pulse Rate 92 H 91 H 99 H Respiratory Rate Blood Pressure Blood Pressure [Left] O2 Sat by Pulse 97 98 97 Oximetry 11/19/20 11/19/20 11/19/20 03:59 04:04 04:26 Temperature Pulse Rate 95 H 101 H 118 H Respiratory Rate Blood Pressure Blood Pressure [Left] O2 Sat by Pulse 97 98 97 Oximetry 11/19/20 11/19/20 11/19/20 04:31 04:36 04:41 Temperature Pulse Rate 100 H 89 109 H Respiratory Rate Blood Pressure Blood Pressure [Left] O2 Sat by Pulse 97 97 96 Oximetry 11/19/20 11/19/20 11/19/20 04:46 04:51 04:56 Temperature Pulse Rate 98 H 86 109 H Respiratory Rate Blood Pressure Blood Pressure [Left] O2 Sat by Pulse 97 98 97 Oximetry 11/19/20 11/19/20 11/19/20 05:01 05:06 05:11 Temperature Pulse Rate 101 H 94 H 105 H Respiratory Rate Blood Pressure Blood Pressure [Left] O2 Sat by Pulse 97 98 97 Oximetry 11/19/20 11/19/20 11/19/20 05:16 05:21 05:26 Temperature Pulse Rate 105 H 100 H 80 Respiratory Rate Blood Pressure Blood Pressure [Left] O2 Sat by Pulse 98 98 90 Oximetry 11/19/20 11/19/20 11/19/20 05:27 05:32 05:37 Temperature Pulse Rate 98 H 91 H 98 H Respiratory Rate Blood Pressure Blood Pressure [Left] O2 Sat by Pulse 97 97 98 Oximetry 11/19/20 11/19/20 11/19/20 05:42 05:47 05:52 Temperature Pulse Rate 95 H 105 H 97 H Respiratory Rate Blood Pressure Blood Pressure [Left] O2 Sat by Pulse 97 97 97 Oximetry 11/19/20 11/19/20 11/19/20 05:57 06:02 06:07 Temperature Pulse Rate 105 H 127 H 99 H Respiratory Rate Blood Pressure Blood Pressure [Left] O2 Sat by Pulse 97 99 97 Oximetry 11/19/20 11/19/20 11/19/20 06:17 06:22 06:27 Temperature Pulse Rate 112 H 97 H 89 Respiratory Rate Blood Pressure Blood Pressure [Left] O2 Sat by Pulse 98 97 98 Oximetry 11/19/20 11/19/20 11/19/20 06:32 06:37 06:42 Temperature Pulse Rate 99 H 106 H 92 H Respiratory Rate Blood Pressure Blood Pressure [Left] O2 Sat by Pulse 98 97 99 Oximetry 11/19/20 11/19/20 11/19/20 06:47 06:52 06:57 Temperature Pulse Rate 89 94 H 113 H Respiratory Rate Blood Pressure Blood Pressure [Left] O2 Sat by Pulse 98 98 98 Oximetry 11/19/20 11/19/20 11/19/20 07:02 07:04 07:07 Temperature 98.3 F Pulse Rate 104 H 102 H 109 H Respiratory 18 Rate Blood Pressure 137/80 Blood Pressure 137/80 [Left] O2 Sat by Pulse 97 97 Oximetry 11/19/20 11/19/20 11/19/20 07:12 07:17 07:22 Temperature Pulse Rate 103 H 94 H 104 H Respiratory Rate Blood Pressure Blood Pressure [Left] O2 Sat by Pulse 97 97 97 Oximetry - Exam Breasts: normal Cardiovascular: Regular rate Lungs: Normal air movement Abdomen: Present: normal appearance, soft Vulva: both: normal Uterus: Present: other (difficult to palpate d/t BMI 69) FHR: category 1 Uterine Contraction Monitor Mode: External - Labs Labs: Abnormal Labs 11/17/20 11/18/20 11/18/20 23:25 07:15 11:20 RDW 15.5 H POC Glucose 108 H 124 H 11/18/20 11/18/20 15:44 19:39 RDW POC Glucose 120 H 114 H Laboratory Results - last 24 hr 11/18/20 11/18/20 11/18/20 07:15 09:11 11:20 POC Glucose 108 H 124 H Coronavirus (PCR) Negative 11/18/20 11/18/20 11/19/20 15:44 19:39 00:04 POC Glucose 120 H 114 H 90 Coronavirus (PCR)
[2020-11-19] MEDS ORDERED: OXYTOCIN DRIP 30 UNITS/500 ML BAG IV SCH (08:30)
--- NOTE | 2020-11-19 09:18 | Procedure Note ---
OB Delivery Note - Delivery Date of Delivery: 11/19/20 (baby girl Florentin) [facility] Estimated blood loss: other (350) - Vaginal Delivery presentation: vertex Delivery position: OA Intrapartum events: other(please specify) (serial IOL for DM type 2) Delivery induction: misoprostol Delivery monitor: external FHT, external uterine Route of delivery: Delivery placenta: spontaneous Delivery cord: 3 umbilical vessels Episiotomy: none Delivery laceration: 1st degree (hemostatic, not repaired) Anesthesia: none Delivery comments: SROM while in shower for AM care, patient proceeded to complete within 1 hour. female born in 2 pushed, QIANA. Placed on mother's abdomen for skin to skin. 3 vessel cord clamped and cut after cessation of pulsation. cord blood collected. Placenta del intact and complete. 1st degree vaginal laceration hemostatic, no repaired. Apgars 8/9, wt 8#5oz, EBL 350. Mother and LDR stable. All counts correct. - A at 1 minute: 8 at 5 minutes: 9 Gender: Female (8#5oz)
[2020-11-19] MEDS ORDERED: IBUPROFEN 600 MG TAB PO SCH (11:20)
[2020-11-19] MEDS: PRENATAL VIT27-FE FUMARATE-FOLIC ACID VIT TAB PO SCH (11:44)
[2020-11-19] MEDS: IBUPROFEN 800 MG TAB PO SCH ×2 (11:44→17:43)
[2020-11-19] MEDS ORDERED: LANOLIN/ZINC/DIMETHICONE (LANSINOH) 7 GM TP PRN ×2 (12:00)
[2020-11-19] MEDS ORDERED: WITCH HAZEL/ GLYCERIN PAD TP PRN (12:00)
[2020-11-19] MEDS ORDERED: diphenhydrAMINE 25 MG CAP PO PRN (12:00)
[2020-11-19] MEDS ORDERED: BENZOCAINE/MENTHOL 20/0.5% TOP SPRAY 56 GM TP PRN (12:00)
[2020-11-19] MEDS ORDERED: ONDANSETRON 4 MG/2 ML INJ IV PRN (12:00)
[2020-11-19] MEDS ORDERED: PROMETHAZINE 25 MG TAB PO PRN (12:00)
[2020-11-19] MEDS: DOCUSATE SODIUM 100 MG CAP PO SCH ×2 (17:42→22:02)
[2020-11-19] MEDS: FERROUS SULFATE 325 MG TAB PO SCH ×2 (17:43→22:02)
[2020-11-19] MEDS: INSULIN REGULAR, HUMAN 100 UNITS/1 ML SUB-Q SCH ×2 (18:40→22:00)
[2020-11-19 21:02] LABS: Hematocrit 36.4 % (30.3-42.9); Hemoglobin 12.2 gm/dl (10.1-14.3)
[2020-11-19] MEDS ORDERED: MAGNESIUM HYDROXIDE (MOM) ORAL LIQD UDC PO PRN (22:00)
[2020-11-20] MEDS: IBUPROFEN 800 MG TAB PO SCH (06:21)
--- NOTE | 2020-11-20 06:58 | Discharge Summary ---
Providers - Providers Date of Admission: 11/17/20 20:59 Date of discharge: 11/20/20 (desires discharge) Attending physician: JIM HENRY 11/19/20 11:20 Consult to Rn Hospice [CONS] Routine Reason For Exam: assistance with , SNS Primary care physician: JIM HENRY Hospitalization Reason for admission: induction of labor Delivery: Episiotomy: none Laceration: 1st degree (hemostatic, no repaired indicated) Other procedures: none complications: none Discharge diagnosis: IUP at term delivered [place] baby: female Hospital course: Normal Spontaneous Vaginal Delivery Pt alert and oriented X2. Blood pressures elevated, other VSS. H&H . Unable to palpate fundus due to patient habitus. Bleeding small, denies pain. Plan to discharge today with follow up in office in 4weeks. 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 PCP in 2-4 weeks (2) (normal spontaneous vaginal delivery) Status: Acute Comment: RTO 4 weeks PP care Plan - Provider Discharge Summary Activity: routine, no sex for 6 weeks, no heavy lifting 4 weeks, no strenuous exercise Diet: routine Instructions: routine Additional instructions: [] Smoking cessation referral if applicable(refer to patient education folder for contact #) [] Refer to [facility] Booklet Call your doctor immediately for: * Fever > 100.5 * Heavy vaginal bleeding ( >1 pad per hour) * Severe persistent headache * Shortness of breath * Reddened, hot, painful area to leg or breast * Drainage or odor from incision. * Keep incision clean and dry at all times and follow doctor's instructions regarding bathing/showering - Follow up plan Follow up: JIM HENRY MD [Primary Care Provider] - 12/19/20 (Congratulations! Please call [phone] to schedule visit in four weeks. Take Motrin/ibuprofen for pain/cramping Call with any concerns.)
[2020-11-20] MEDS: INSULIN REGULAR, HUMAN 100 UNITS/1 ML SUB-Q SCH (07:45)
[2020-11-20] MEDS: DOCUSATE SODIUM 100 MG CAP PO SCH (10:37)
[2020-11-20] MEDS: PRENATAL VIT27-FE FUMARATE-FOLIC ACID VIT TAB PO SCH (10:37)
[2020-11-20] MEDS: FERROUS SULFATE 325 MG TAB PO SCH (10:37)
[2020-11-20] MEDS ORDERED: TETANUS,DIPH,PERTUSS(ACELL) VACCINE 0.5 ML SYRINGE IM ONE (12:00)
[2020-11-20 14:56] VITALS: BP 129/87
== END 2020-11-20 14:25 | disposition home or self-care (01) | DRG 774 ==
LOC: LD 20:59 → OB 11-19 11:17
PROVIDERS: ADMIT Obstetrics & Gynecology; ATTEND Obstetrics & Gynecology
PROC: 10E0XZZ Delivery of Products of Conception, External Approach (ICD-10-PCS; principal; 2020-11-19)
PROC: 3E0DXGC Introduction of Other Therapeutic Substance into Mouth and Pharynx, External Approach (ICD-10-PCS; 2020-11-19)
DX: O24.92 Unspecified diabetes mellitus in childbirth (principal); Z3A.39 39 weeks gestation of pregnancy; Z37.0 Single live birth; Z20.822 Contact with and (suspected) exposure to COVID-19; Z79.4 Long term (current) use of insulin; Z88.8 Allergy status to other drugs, medicaments and biological substances; O70.0 First degree perineal laceration during delivery
CPT/HCPCS: 36415; 59200; 76815; 82962; 85014; 85018; 85027; 86592; 86850; 86900; 86901; 88307; G0378; J1815; J2590; J7120; U0003